=== PATIENT | male | born 1975 | race Two or more races ===

== ENCOUNTER 2018-05-23 13:21 | Emergency (ER) | payer OTHER, MEDICAID ==
[~2018-05-23] VITALS: Ht 175.3 cm; Wt 74.8 kg
[2018-05-23 13:23] VITALS: Ht 175.3 cm; Wt 74.8 kg
[2018-05-23 17:45] VITALS: BP 132/85
[2018-05-23 17:51] LABS: BASOPHIL % 0.3 % (0-2); PLATELET COUNT 237 x10^3mcL (130-400)
[2018-05-23 17:56] LABS: CALCIUM 8.4 mg/dL (8.5-10.1); CARBON DIOXIDE 24.2 mmol/L (21-32); CHLORIDE SERUM 96 mmol/L (98-107); GFR1 > 60 mL/min; GLUCOSE SERUM 113 mg/dL (74-106); POTASSIUM SERUM 3.7 mmol/L (3.5-5.1); SODIUM SERUM 131 mmol/L (136-145)
[2018-05-23 17:59] LABS: ALBUMIN 3.5 g/dL (3.4-5.0); ALKALINE PHOSPHATASE 114 U/L (46-116); ALT/SGPT 23 U/L (16-63); AST/SGOT 14 U/L (15-37); BILIRUBIN TOTAL 0.35 mg/dL (0.20-1.00); TOTAL PROTEIN, SERUM 7.7 g/dL (6.4-8.2)
[2018-05-23 18:05] LABS: CHOLESTEROL 213 mg/dL (<200)
[2018-05-23 18:07] LABS: RED CELL DISTRIBUTION WIDTH 16.4 % (11.5-14.5)
== END 2018-05-23 17:45 | disposition short-term general hospital (02) ==
LOC: ED 13:21
PROVIDERS: Specialist
DX: R11.2 Nausea with vomiting, unspecified (principal); R51 Headache; R40.4 Transient alteration of awareness; R50.9 Fever, unspecified; G89.29 Other chronic pain
CPT/HCPCS: 87804; G0480; J1885; J3010; Q0162

== ENCOUNTER 2019-01-31 12:17 | Inpatient (IN) | payer OTHER, MEDICAID ==
[~2019-01-31] VITALS: Ht 175.3 cm; Wt 74.0 kg
--- NOTE | 2019-01-31 12:18 | NUR ---
PT PLACED ON BUE AND BLE SOFT RESTRAINTS PER MD HAYS VERBAL ORDERS D/T PT BECOMING AGITATED AND COMBATIVE
--- NOTE | 2019-01-31 12:18 | NUR ---
PT ARRIVED ON BUE AND BLE SOFT RESTRAINTS D/T COMBATIVE BEHAVIOR, PER MD HAYS VERBAL ORDERS CONTINUE RESTRAINTS, SEE RESTRAINT FLOW SHEET IN NURSE NOTES
--- NOTE | 2019-01-31 12:18 | NUR ---
MD HAYS AT BEDSIDE PERFORMING MSE
--- NOTE | 2019-01-31 12:18 | NUR ---
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
--- NOTE | 2019-01-31 12:19 | NUR ---
REDNESS TO BILATERAL SCLERA NOTED
--- NOTE | 2019-01-31 12:33 | NUR ---
LAB AT BEDSIDE
[2019-01-31 12:46] LABS: BASOPHIL % 0.2 % (0-2); PLATELET COUNT 270 x10^3mcL (130-400); RED CELL DISTRIBUTION WIDTH 14.7 % (11.5-14.5)
[2019-01-31 12:58] LABS: CALCIUM 8.7 mg/dL (8.5-10.1); CARBON DIOXIDE 21.1 mmol/L (21-32); CHLORIDE SERUM 105 mmol/L (98-107); CREATININE SERUM 1.1 mg/dL (0.7-1.3); GFR1 > 60 mL/min; GLUCOSE SERUM 119 mg/dL (74-106); POTASSIUM SERUM 3.5 mmol/L (3.5-5.1); SODIUM SERUM 141 mmol/L (136-145)
--- NOTE | 2019-01-31 13:00 | NUR ---
DROPLET PRECAUTIONS IN PLACE PER MD HAYS VERBAL ORDER
[2019-01-31 13:10] LABS: ALBUMIN 3.7 g/dL (3.4-5.0); ALKALINE PHOSPHATASE 102 U/L (46-116); ALT/SGPT 22 U/L (16-63); AST/SGOT 20 U/L (15-37); BILIRUBIN DIRECT 0.19 mg/dL (0.0-0.2); BILIRUBIN TOTAL 0.8 mg/dL (0.20-1.00); LIPASE 52 IU/L (73-393); TOTAL PROTEIN, SERUM 6.9 g/dL (6.4-8.2)
--- NOTE | 2019-01-31 13:15 | NUR ---
ADMINSTERED VERSED IVP D/T PT BEING RESTLESS AT BEDSIDE FOR CT.
--- NOTE | 2019-01-31 13:18 | NUR ---
INITIATED ROCEPHIN @200ML/HR. PLEASE SEE EMAR.
--- NOTE | 2019-01-31 13:41 | NUR ---
INITIATED ACYCLOVIR @120ML/HR. PLEASE SEE EMAR.
--- NOTE | 2019-01-31 13:55 | NUR ---
PT HAD A BM ON THE GURNEY. EMT VANIA AND MYSELF CLEAN AND CHANGED PT INTO NEW GOWN.
--- NOTE | 2019-01-31 14:00 | NUR ---
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
--- NOTE | 2019-01-31 14:12 | NUR ---
RT CALLED TO BEDSIDE FOR MODERATE SEDATION, MD HAYS MADE AWARE
--- NOTE | 2019-01-31 14:17 | NUR ---
CONTACTED CT, INFORMED ME APPROX [address] BED AVAILABLE
--- NOTE | 2019-01-31 14:32 | NUR ---
PER DR. HAYS, CONTACT AND DROPLET PRECAUTIONS APPLIED TO PATIENT, STAFF MADE AWARE
--- NOTE | 2019-01-31 14:50 | NUR ---
CRASH CART AT BEDSIDE, MODERATE SEDATION PROTOCOL IN PLACE, PT ON FULL CM, RT AND PERSONAL CARE SERVICE PROVIDER AT BEDSIDE
--- NOTE | 2019-01-31 14:50 | NUR ---
MD HAYS AT BEDSIDE FOR MODERATE SEDATION, SEE MODERATE SEDATION RECORDLACED IN PT CHART, PT UNABLE TO SIGN CONSENT D/T BRIAN, ELLEN RN AND CORNELIUS RN SIGNED CONSENT
--- NOTE | 2019-01-31 15:07 | NUR ---
LEFT HAND 18G IV DISLODGED DURING CT, PT WAS AGITATED, BLEEDING CONTROLLED, ANGIOCATH INTACT
--- NOTE | 2019-01-31 15:40 | NUR ---
BACK FROM CT IN STABLE CONDITION WITH RT AT BEDSIDE, PT ON FULL CM, SINUS TACYCARDIA, EQUAL CHEST RISE AND FALL, SKIN PINK DRY AND WARM
--- NOTE | 2019-01-31 16:00 | NUR ---
PT MOVING ALL EXTREMITIES, EQUAL CHEST RISE AND FALL
--- NOTE | 2019-01-31 16:02 | NUR ---
JESSICA, CONCRETE PUMP OPERATOR HELPER, AT BEDSIDE
--- NOTE | 2019-01-31 16:14 | NUR ---
URINAL IN PLACE
[2019-01-31 16:23] LABS: CHOLESTEROL/HDL RATIO 2.9; MAGNESIUM 1.6 mg/dL (1.8-2.4); PHOSPHOROUS 1.9 mg/dL (2.5-4.9)
--- NOTE | 2019-01-31 16:34 | NUR ---
MARY JANE, CAREGIVER PROVIDED PT MOM NUMBER, OZ MASCORRO, , MARY JANE STS HIS NUMBER HAS CHANGED FROM [facility] AND IS UNAWARE OF HIS CURRENT NUMBER
[2019-01-31] MEDS ORDERED: GABAPENTIN600 M1 PO (16:36)
[2019-01-31] MEDS ORDERED: AMLODIPINE BESYL5 M2 PO (16:38)
[2019-01-31] MEDS ORDERED: PANTOPRAZOLE SO40 M1 PO (16:38)
[2019-01-31] MEDS ORDERED: STRIBILD1 TAB PO (16:38)
[2019-01-31] MEDS ORDERED: PAROXETINE40 M1 PO (16:39)
[2019-01-31] MEDS ORDERED: LOSARTAN POTASS50 M1 PO (16:39)
[2019-01-31] MEDS ORDERED: KROGER NIC21 MG/24 H TOP (16:40)
--- NOTE | 2019-01-31 17:06 | NUR ---
VANCO INFUSING PER MD HAYS ORDER SEE EMAR, VSS, NSR ON CM, RESPS E/U
--- NOTE | 2019-01-31 17:19 | NUR ---
MD HYAS MADE AWARE OF NO URINE COLLECTED AT THIS TIME, PER MD HAYS VERBAL ORDER OKAY TO SEND TO ICU WITHOUT URINE SPECIMEN COLLECTED, RECEIVING RN SIVA MADE AWARE
--- NOTE | 2019-01-31 17:20 | NUR ---
DROPLET PRECAUTIONS D/C PER MD HAYS VERBAL ORDER S/P CT RESULTS
--- NOTE | 2019-01-31 17:30 | NUR ---
MD HAYS MADE AWARE OF PT RECTAL TEMP., PER MD HAYS VERBAL ORDER OKAY TO ADMIT TO ICU, REPORT GIVEN TO SIVA RN, ICU, SHE IS AWARE OF PT VITALS
[2019-01-31 18:13] VITALS: BP 163/93
--- NOTE | 2019-01-31 18:40 | NUR ---
RECIEVED PATIENT FROM ED VIA GURNEY ATTACHED TO FOUNDRY LABORER COREROOM ACCOMPANIED BY NURSE. RECIEVED REPORT FROM PABLO SHIELDS PRIOR TO PATIENT ARRIVING TO UNIT. ALL QUESTIONS AND CONCERNS ADDRESSED. VS UPON ARRIVAL: RECTAL TEMP 103.5, NIBP 163/93 (MAP 106), HR 110, RR 20, 02 SAT 99% RA. COOLING BLANKET IN PLACE AND ICE PACKS APPLIED. PATIENT OPENS EYES TO TACTILE STIMULI BUT UNABLE TO TRACK. PUPILS ARE DILTAED AT 5 MM AND BRISK. PATIENT IS UNABLE TO FOLLOW SIMPLE COMMANDS OR MAKE NEEDS KNOWN AT THIS TIME. PATIENT WILL NOT SPEAK WHEN ASKED A QUESTION. LS ARE CTA BILATERALLY. RESPIRATIONS ARE EQUAL AND SYMMETRICAL. 16 FR MERCADO CATH INSERTED VIA STERILE TECHNIQUE, NO URINE OUTPUT AT THIS TIME. PATIENT FOUND TO HAVE JUST URINATED IN THE BED. WILL MONITOR F/C DRAINAGE CLOSELY. LIMITED ACTIVE ROM NOTED TO BUE AND BLE D/T VELCRO RESTRAINTS IN PLACE. PATIENT IS RESTLESS AND CAN NOT STAY STILL IN BED, KICKING HIS LEGS UP. BED TO LOWEST POSITION, SIDE RAILS UP X3, CALL LIGHT WITHIN REACH. WILL CONTINUE TO MONITOR.
--- NOTE | 2019-01-31 18:47 | NUR ---
DR. AORRA AT BEDSIDE SPEAKING TO PATIENT'S FATHER LUIS REGARDING PATIENT'S HEALTH STATUS AND POC. WILL CONTINUE TO MONITOR.
[2019-01-31 19:27] VITALS: BP 153/93
--- NOTE | 2019-01-31 19:27 | NUR ---
PT OPENS EYES SPONTANEOUSLY, BUT MAKES INCOMPREHENSIBLE SOUNDS, NO VERBAL RESPONSES. ON BILATERAL RESTRAINTS WITH VELCRO TO UPPER EXTREMITIES, RESTRAINTS OFF TO LOWER EXTREMITIES. MALE FAMILY MEMBER WHO IDENTIFIES HIMSELF PT'S FATHER IN ROOM. PT ATTEMPTS TO PULL ON IV LINE AND MERCADO CATH, DANGER TO SELF. REINFORCED NEED NOT TO PULL ON LINES AND TUBES, NO INDICATION OF LEARNING. MG RIDER INFUSING AT THIS TIME TO LEFT AC IV. SALINE LOCK TO RIGHT AC. IV SITES APPEAR FREE FROM ERYTHEMA OR SWELLING. PASSED SOFT STOOL, HYGIENE NEEDS ATTENDED TO. NOTED YELLOW URINE IN MERCADO BAG.
--- NOTE | 2019-01-31 19:52 | NUR ---
URINE SPECIMEN SENT TO LAB
--- NOTE | 2019-01-31 19:54 | NUR ---
RECEIVED LACTIC ACID OF 2.5 FROM LAB. PREMA AND NOTIFIED DR. ARORA.
--- NOTE | 2019-01-31 20:02 | NUR ---
MALE FAMILY MEMBER BROUGHT PT'S HOME MED STRIBILD, SENT TO PHARMACIST FOR VERIFICATION.
[2019-01-31 20:04] LABS: UA SPECIFIC GRAVITY 1.015 (1.005-1.035); microscopic required? YES; urine erythrocyte 3+ (NEGATIVE)
[2019-01-31 20:19] LABS: AMPHETAMINE QUAL UR NONE DETECTED (See below)
--- NOTE | 2019-01-31 20:53 | NUR ---
PASSED LOOSE STOOL. HYGIENE NEEDS ATTENDED TO. GOWN CHANGED. TYLENOL ADMINISTERED PER RECTUM FOR FEVER. COOLING MATTRESS AND COOLING MEASURES CONTINUED.
--- NOTE | 2019-01-31 21:19 | NUR ---
LATE ENTRY: 1926H - PT ON COOLING MATTRESS. OTHER COOLING MEASURES IN PLACE.
--- NOTE | 2019-01-31 21:46 | NUR ---
PASSED SOFT STOOL. HYGIENE NEEDS ATTENDED TO. NOTED SMALL CLOT OF BLOOD TO MERCADO CATH.
--- NOTE | 2019-01-31 21:54 | NUR ---
DR. LEIVA IN PT'S ROOM, PT'S MOTHER IN ROOM
--- NOTE | 2019-01-31 23:32 | NUR ---
AWAITING PRECEDEX FROM PHARMACY
--- NOTE | 2019-01-31 23:45 | NUR ---
PRECEDEX DRIP STARTED AT 0,2MCG/KG/HR. DOSAGE AND IV SET UP VERIFIED WITH LEORA BUSTILLOS.
[2019-02-01] VITALS (9 sets, daily range): BP systolic 90–148; BP diastolic 33–89; Ht 175.3 cm; Wt 74.0 kg
--- NOTE | 2019-02-01 00:18 | NUR ---
PRECEDEX DRIP WAS INCREASED BY LEORA BUSTILLOS TO 0.4 MCG/KR/HR. PT APPEARS SOMEWHAT CALMER. STILL ATTEMPTS TO PULL ON IV LINE AND MERCADO CATH, DANGER TO SELF. ON BILATERAL WRIST RESTRAINTS. MOTHER IN ROOM. DR. ORTIZ AND DR. ARORA CAME IN ROOM. INFORMED DR. ARORA NOTED BLOOD IN PT'S URINE.
--- NOTE | 2019-02-01 00:38 | NUR ---
TEMP 99.8F. TURNED Sckip[employer] TechnologiesTHER TO MONITOR MODE.
--- NOTE | 2019-02-01 00:39 | NUR ---
NEW ORDERS RECEIVED, WAITING FOR PHARMACY TO VERIFY
--- NOTE | 2019-02-01 01:01 | NUR ---
PT ABLE TO STATE HIS NAME WHEN ASKED. STILL UNABLE TO STATE WHERE HE IS OR . CHANGED STATLOCK MERCADO TO PREVENT PT FROM PULLING ON MERCADO CATH. IV TO LEFT AC DIFFICULT TO FLUSH, WAS REMOVED BY NURSE BURKS. NEW IV INSERTED BY NURSE BURKS TO LEFT AC. SALINE LOCK TO RIGHT AC FLUSHED WELL. IV'S INFUSING TO RIGHT AC IV.
--- NOTE | 2019-02-01 02:08 | NUR ---
PRECEDEX DRIP IS AT 0.7 MCG/KG/HR. INFUSING TO RIGHT AC IV. PT IS CALMER, BUT STILL HAS EPISODES OF RESTLESSNESS AND ATTEMPTING TO PULL ON IV LINE AND MERCADO CATH. ON BILATERAL WRIST RESTRAINTS. RESTRAINT SITES FREE FROM ERYTHEMA. HOB KEPT ELEVATED 30 DEG. MERCADO CATH DRAINING LIGHT RED URINE. IV SITES FREE FROM ERYTHEMA OR SWELLING. PT'S MOTHER AT BEDSIDE ON RECLINER CHAIR.
--- NOTE | 2019-02-01 02:29 | NUR ---
EYES CLOSED, BREATHING EVEN AND UNLABORED ON ROOM AIR. SINUS RHYTHM ON TELE. CALL LIGHT WITHIN EASY REACH. PT'S MOTHER AT BEDSIDE ON RECLINER CHAIR
--- NOTE | 2019-02-01 05:22 | NUR ---
LATE ENTRY: 0430H - BLOOD URINE IN MERCADO TUBE. MERCADO CATH WAS REMOVED BY LEORA BUSTILLOS. DR. HESS IN ROOM AWARE. PT ABLE TO VOID URINE AFTER MERCADO CATH REMOVED TOTAL OF 500ML URINE. RESTRAINTS REMOVED PT ABLE TO FOLLOW MOST COMMANDS AND CONTRACT NOT TO PULL ON IV LINES. MOTHER IN ROOM. GOWN AND LINEN CHANGED. IV LINES FREE FROM ERYTHEMA OR SWELLING. IVF INFUSING WELL. PRECEDEX INFUSING AT 0.7MCG/KG/HR.
--- NOTE | 2019-02-01 05:24 | NUR ---
EYES CLOSED, BREATHING EVEN AND UNLABORED. HOB KEPT ELEVATED 30 DEG. CALL LIGHT WITHIN EASY REACH. LYING ON HIS BACK. MOTHER AT BEDSIDE.
[2019-02-01 05:27] LABS: CALCIUM 7.1 mg/dL (8.5-10.1); CARBON DIOXIDE 21.3 mmol/L (21-32); CHLORIDE SERUM 103 mmol/L (98-107); CREATININE SERUM 0.7 mg/dL (0.7-1.3); GFR1 > 60 mL/min; GLUCOSE SERUM 110 mg/dL (74-106); MAGNESIUM 2.2 mg/dL (1.8-2.4); PHOSPHOROUS 3.4 mg/dL (2.5-4.9); POTASSIUM SERUM 3.3 mmol/L (3.5-5.1); SODIUM SERUM 136 mmol/L (136-145)
[2019-02-01 05:33] LABS: BASOPHIL % 0.4 % (0-2); PLATELET COUNT 195 x10^3mcL (130-400)
[2019-02-01 05:34] LABS: RED CELL DISTRIBUTION WIDTH 14.6 % (11.5-14.5)
--- NOTE | 2019-02-01 05:38 | NUR ---
LAB CALLED WBC 12.1. SENT MESSAGE VIA [employer] TO DR. ARORA. ALSO INFORMED K LEVEL IS 3.3
--- NOTE | 2019-02-01 05:52 | NUR ---
CK 1040. PAGED DR. ARORA
--- NOTE | 2019-02-01 05:54 | NUR ---
DR. ARORA CALLED BACK, INFORMED CK 6497, WBC 13.9, K 3.3
--- NOTE | 2019-02-01 05:55 | NUR ---
NEW ORDER TO INCREASE IVF OF NS TO 150ML/HR
--- NOTE | 2019-02-01 06:16 | NUR ---
swallow screening done. pt able to drink water without choking, coughing or swallow delay. administered po prilosec. pt able to swallow well.
--- NOTE | 2019-02-01 06:26 | NUR ---
eyes closed, breathing even and unlabored on room air. obeys commands. calm and cooperative with care. hob kept elevated 30 deg. ivf infusing well. ivf and precedex infusing well to right ac iv site, iv site free from erythema or swelling.
--- NOTE | 2019-02-01 07:05 | NUR ---
RECIEVED REPORT FROM PABLO MUSE TO ASSUME ALL CARES. ALL QUESTIONS AND CONCERNS ADDRESSED. PATIENT IS SEDATED ON PRECEDEX DRIP AT 0.7 MCG/KG/HR. RSS-4. OPENS EYES TO VERBAL STIMULI AND ABLE TO TRACK. RESPIRATIONS ARE EQUAL AND SYMMETRICAL ON ROOM AIR. VSS. IV'S NOTED TO LAC AND RAC IN PLACE WITH NO SIGNS OF INFILTRATION NOTED. NS INFUSING AT 150 ML/HR. PATIENT ABLE TO REPOSTIION SELF AND TURN IN BED INDEPENDENTLY. BED TO LOWEST POSITION, SIDE RAILS UP X3, CALL LIGHT WITHIN REACH. PATIENT IS CURRENTLY IN DROPLET PRECAUTIONS TO R/O MENEGITIS. WILL CONTINUE TO MONITOR.
--- NOTE | 2019-02-01 08:47 | NUR ---
ECHOCARDIOGRAM PENDING-PT UNCOOPERATIVE
--- NOTE | 2019-02-01 08:59 | NUR ---
SCREEN FOR LOW SÁNCHEZ SCALE AT RISK CONTINUE PRESSURE ULCER PREVENTION INTERVENTIONS: -TURN AND REPOSITION PATIENT Q 2H OFFLOAD LEFT AND RIGHT HIPS -ASSESS AND MONITOR SKIN CONDITION DURING POSITION CHANGE -OFFLOAD BILATERAL HEELS BY PLACING PILLOWS UNDER CALVES AT ALL TIMES, UNLESS OTHERWISE CONTRAINDICATED -PRESSURE REDISTRIBUTION SURFACE THERAPY -KEEP SKIN CLEAN AND DRY AT ALL TIMES.
--- NOTE | 2019-02-01 10:13 | NUR ---
SPOKE WITH PATIENT'S NURSE JUAN JOSE REGARDING ORDERED LUMBAR PUNCTURE. PATIENT ON IV SEDATION, MOM AT BEDSIDE FOR CONSENT PROCESS. PHYSICIANS ON ROUNDS AT THIS TIME, JUAN JOSE WILL CHECK TO SEE IF PATIENT WILLING TO CONSENT TO THE LP.
--- NOTE | 2019-02-01 14:39 | NUR ---
DR. ZAVALA MADE AWARE PT REFUSED LUMBAR PUNCTURE AT THIS TIME AND IS BACK IN UNIT. PER DR. ZAVALA WE WILL TRY AGAIN TOMORROW.
--- NOTE | 2019-02-01 14:46 | NUR ---
TRANSPORTED PATIENT TO RADIOLOGY FLUORO ROOM 1 FOR LUMBAR PUNCTURE. INITIALLY PATIENT WAS COOPERATIVE BUT UPON ARRIVAL TO RADIOLOGY, BECAME AGITATED, COMBATIVE, THRASHING ON TABLE, JUMPED BACK INTO BED. DR AMAYA SPOKE WITH PATIENT WHO IS NOW REFUSING THE LP; STATES HE IS HAVING TOO MUCH PAIN IN HIS HEAD AND ADAMANTLY REFUSING. RETURNED TO ICU ROOM 1. PATIENT REFUSED TO WEAR MASK DURING TRANSPORT PROCESS.
--- NOTE | 2019-02-01 14:49 | NUR ---
PATIENT BACK FROM LUMBAR PUNCTURE PROCEDURE. PER PABLO RIVERA PATIENT GOT AGITATED WHEN MOVING FROM BED TO PROCEDURE BED AND PATIENT STATED "A LOT OF PRESSURE IN HIS HEAD". PATIENT REFUSED THE LUMBAR PUNCTURE AND WAS SENT STRAIGHT BACK TO ICU 5. DR. GARCIA AND FAMILY MADE AWARE. WILL CONTINUE TO MONITOR.
--- NOTE | 2019-02-01 14:59 | NUR ---
PATIENT C/O 10/10 HEAD PAIN AND IS REQUESTING MORPHINE. PATIENT PREVIOUSLY GIVEN NORCO PO (SEE EMAR). WILL NOTIFY DR. GARCIA.
--- NOTE | 2019-02-01 15:22 | NUR ---
PT REFUSED PHYSICAL THERAPY AT THIS TIME. PHYSICAL THERAPIST STATED HE WILL TRY AGAIN TOMORROW.
--- NOTE | 2019-02-01 15:40 | NUR ---
PHYSICAL THERAPY NOTES PATIENT REFUSED EVAL AND TREATMENT TODAY SECONDARY TO FATIGUE. UNABLE TO ENCOURAGE. PATIENT EDUCATED WITH BENEFITS FOR TREATMENT TO INCREASE OVERALL FUNCTIONAL MOBILITY. PATIENT REFUSED. WILL ATTEMPT NEXT VISIT. NURSING AWARE
--- NOTE | 2019-02-01 19:11 | NUR ---
REPORT GIVEN TO PABLO PEARL TO ASSUME ALL CARES. ALL QUESTIONS AND CONCERNS ADDRESSED.
--- NOTE | 2019-02-01 19:20 | NUR ---
REC'D REPORT FROM JUAN JOSE SHAH TO ASSUME CARE. PT SEDATED ON PRECEDEX 0.7 MCG/KG/HR, RSS 1. PT A/A/0 X3, SPEECH CLEAR AND APPROPRIATE. PERRLA NOTED. EENT FREE OF DISCHARGE. RESPS E/U ON ROOM AIR. LUNG SOUNDS CTA. CHEST RISE EQUAL AND SYMMETRICAL. BLISTER PACKAGING MACHINE OPERATOR IN PLACE SHOWING NSR. S1 S2 AUSCULTATED. CHEST WALL STABLE. DENIES ANY CP, SYNCOPE, OR DIZZINESS. BP 90/50 MAP 65, HR 85. PULSES PALPABLE X4. CAP REFILL < 3 SECS. NO EDEMA NOTED. IV TO RAC AND LAC INTACT AND PATENT. IVF NS INFUSING @ 150ML/HR. ABD ROUND, SOFT, NONTENDER TO TOUCH. BOWEL SOUNDS ACTIVE. DENIES ANY N/V/D. VOIDS FREELY WITH URINAL. DENIES ANY URINARY SYMPTOMS. SKIN INTACT. ABLE TO MOVE ALL EXT WITHOUT DIFFICULTY. PT ABLE TO REPOSITION SELF INDEPENDENTLY. PT RESTLESS AND AGITATED WHEN APPROACHED. PTS MOTHER AND FATHER AT BEDSIDE. FALL PRECAUTIONS APPLIED AND MAITAINED. CALL LIGHT WITHIN REACH. WILL CONTINUE TO MONITOR.
--- NOTE | 2019-02-01 19:50 | NUR ---
PT PLACED IN HIGH FOWLERS POSITION AND SET UP DINNER TRAY.
--- NOTE | 2019-02-01 20:16 | NUR ---
EMPTIED PTS URINAL, 300ML NOMRA COLORED URINE.
--- NOTE | 2019-02-01 23:00 | NUR ---
PT STATES I HAVE NO APPETITE I DONT WANT TO EAT. PTS TRAY TAKEN FROM ROOM.
--- NOTE | 2019-02-02 02:30 | NUR ---
PTS WIRES TANGLED, O2 SAT NOT READING. ATTEMPTED TO UNTANGLE WIRES. PT UPSET, STS "ITS FINE, LEAVE ME ALONE." MADE AWARE PTS O2 SAT NOT READING AND ALL WIRES ALL TANGLED, PT STS "LEAVE ME ALONE." NO RESP DISTRESS NOTED.
[2019-02-02 03:10] VITALS: BP 103/55
--- NOTE | 2019-02-02 04:30 | NUR ---
ATTEMPTED TO FIX PTS O2 SAT AND WIRES, PT UPSET, STS "LEAVE ME ALONE, ITS FINE. I JUST WANT TO SLEEP."
--- NOTE | 2019-02-02 05:00 | NUR ---
PTS RAC IV SEEN OUT WITH ANGIOCATH INTACT. NO ACTIVE BLEEDING NOTED.
--- NOTE | 2019-02-02 05:06 | NUR ---
EMPTIED PTS URINAL, 500ML NORMA COLORED URINE.
[2019-02-02 05:29] LABS: BASOPHIL % 0.4 % (0-2); PLATELET COUNT 178 x10^3mcL (130-400); RED CELL DISTRIBUTION WIDTH 14.8 % (11.5-14.5)
[2019-02-02 05:41] LABS: CALCIUM 7.3 mg/dL (8.5-10.1); CARBON DIOXIDE 20.2 mmol/L (21-32); CHLORIDE SERUM 106 mmol/L (98-107); CREATININE SERUM 0.7 mg/dL (0.7-1.3); GFR1 > 60 mL/min; GLUCOSE SERUM 92 mg/dL (74-106); MAGNESIUM 2.1 mg/dL (1.8-2.4); PHOSPHOROUS 2.9 mg/dL (2.5-4.9); SODIUM SERUM 139 mmol/L (136-145)
--- NOTE | 2019-02-02 05:57 | NUR ---
PTS BED WET, GOWN OFF. OFFERED TO CHANGE BED LINENS, GOWN, AND FIX WIRES. PT REFUSED. PT STS "LEAVE ME ALONE, I JUST WANT TO SLEEP."
--- NOTE | 2019-02-02 07:21 | NUR ---
REPORT GIVEN TO JAXNO SHAH TO ASSUME CARE
--- NOTE | 2019-02-02 07:25 | NUR ---
RECEIVED PT'S REPORT FROM LEAVING NURSE. PT REST ON BED, EASILY AROUSED BY VERBAL STIMULI WITH VERBAL COMMUNICATION. PT IS ON DROPLET ISOLATION. PT IS ON POSITION. HE DOESN'T WANT TO TURN TO HIS BACK. MONITOR WIRES AND LINES ARE TANGLED. PT IS GETTING IRRITATED DURING ASSESSMENT. PT IS OFF RESTRAINTS. PT BREATHING ON RA, EVEN, UNLABORED. HR SB AT 50S. O2 SAT UNABLE TO FORENSICS ANALYST 2/2 PT REFUSED TO KEEPING PULSEOX ON. SEDATION PRECEDEX INFUSING AT 0.7MCG/KG/HR.
[2019-02-02 08:03] VITALS: BP 103/59
--- NOTE | 2019-02-02 08:48 | NUR ---
PT'S HR AROUND 50S, BP AROUND 103/59, TITRATE PRECEDEX FROM 0.7 TO 0.4 MCG/KG/HR. PT IS EASILY AROUSED BY VERBAL STIMULI.
--- NOTE | 2019-02-02 09:56 | NUR ---
DR VENEGAS AND RESIDENTS ROUNDING AT THIS TIME. POC DISCUSSED.
--- NOTE | 2019-02-02 10:12 | NUR ---
PT'S MOM AT BEDSIDE. PRECEDEX IS OFF, ATIVAN 1MG IVP GIVEN PER PRN. PT IS UNPATIENT FOR ASSESSMENT. PT REFUSED FOR PHYSICAL THERAPIST.
--- NOTE | 2019-02-02 10:24 | NUR ---
PATIENT REFUSED ECHOCARDIOGRAM-STATES HE WANTS TO SLEEP
--- NOTE | 2019-02-02 11:09 | NUR ---
Initial Nutrition Assessment: IC05 MANDY MASCORRO HR Dx: ALOC, Sepsis PMHx: HIV, Tobacco abuse disorder, HTN, Peripheral Neuropathy, Depression and GERD PSHx: Back surgery Labs: BUN 20H, CA 7.3L, HGB 12.0L Meds: Cozaar, lactinex, rocephin, vancomycin, zofran Diet: Regular PO Intake: (02/01) 0% all meals Ht: 175.26 cm (69") Wt: 74 kg (163#) BMI: 24.1 kg/m2 Bed scale: 74 kg IBW: 160# (73 kg) %IBW: 101 UBW: 74 kg Age: 43/M Food Allergies: NKFA Skin: intact Clay: 14 Edema: none GI: Last BM: 01/30 Per H&P, Pt is a 43-year-old male with past medical history of HIV, Tobacco abuse disorder, HTN, Peripheral Neuropathy, Depression and GERD who presents in the emergency department after being found altered around 12 PM today by partner followed by EMS. RDN Visit (02/02): Patient was sleeping; pt's mother was at bedside. She said that pt has not eaten anything since yesterday. Asked patient's meal preferences to the mother. She said that patient might eat hamburger, orange juice and apple sauce. Patient mother said that he might drink Ensure and he likes chocolate flavor. Problem with: N/V/D/C: none at this time per mother Problems with: Chewing/Swallowing: none per mother Current appetite: poor Recent wt change: none %wt change: n/a Vitamin/Supplement use: none Special diet at home: regular Physical activity: unable to access Nutrition education given: not possible at this time as patient was sleeping. Food-drug interactions: lactinex- high fiber w/4999-6191 ml fluids Education given: no Estimated Nutritional Needs Based on current body weight 74 kg Energy: 1768-1482 kcal/d (25-30 kcal/kg) Protein: 89-103 g/d (1.2-1.4 g/kg) - preserve LBM, sepsis Fluid: 2947-4737 ml/d (1 ml/kcal) or per doctor Nutrition Diagnosis 1. Inadequate oral intake related to poor appetite as evidenced by documented PO 0% Intervention 1. Recommend Ensure Enlive BID along with regular diet. Discussed recommendations with Dr. Carvalho Monitor/Evaluate Goal: PO intake at least 75% of estimated needs Monitor: PO intake, Labs, GI function F/U in 2-3 days as high risk 02/04-
--- NOTE | 2019-02-02 11:09 | NUR ---
1. Recommend Ensure Enlive BID along with regular diet. Discussed recommendations with Dr. Carvalho
--- NOTE | 2019-02-02 12:14 | NUR ---
PHYSICAL THERAPY NOTE ATTEMPTED FOR PHYSICAL THERAPY EVAL, PATIENT REFUSED AT THIS TIME; STATING HE NEEDS TO CATCH HIS SLEEP. ALSO STATED THAT " I DO NOT NEED PHYSICAL THERAPY"
--- NOTE | 2019-02-02 12:48 | NUR ---
PT IS GOING TO TRANSFER TO [facility] [[email or web address] UNIT ROOM 212 B AFTER LUMBAR PUNCTURE. PT'S REPORT GIVEN TO RECEIVING NURSE ZEYAD. MADE PT'S MOM AWARE. PT IS OFF SEDATION PRECEDEX.
--- NOTE | 2019-02-02 13:01 | NUR ---
PT IS TAKEN FOR LUMBAR PUNCTURE BY NURSE ANASTASIA WITH SALINE LOCK. ATIVAN 1MG IVP PRN GIVEN TO CALM PT. SCHEDULED ROCEPHINE NOT ABLE TO GIVEN AT THIS TIME.
--- NOTE | 2019-02-02 14:09 | NUR ---
ECHO PENDING-HAVING PROCEDURE
--- NOTE | 2019-02-02 14:30 | NUR ---
RECEIVED PATIENT FROM ICU VIA RADIOLOGY AFTER LUMBAR PUCTURE DONE. PATIENT ALERT/ORIENTED TO PERSON/PLACE AND TIME. CLEAR SPEECH. DENIED PAIN NOW. V/S = 99.0-80-18-108/58; O3 SAT 97% ON RA. VOID FREELY 250 CC OF YELLOWISH URINE. IV TO RAC LEAKING. PUT PATIENT ON FLAT SUPINE POSITION FOR 4-6 HRS, BUT PATIENT NOT CO-OP. PATIENT ATE SANDWICH AND DRANK WATER QUICKLY. NO N/V. MOTHER AT BED SIDE. DROPLET ISOLATION IN PLACE. CALL LIGHT IN REACH.
[2019-02-02 14:46] VITALS: BP 108/58
--- NOTE | 2019-02-02 16:25 | NUR ---
IV INSERTED BY 3 RN. IV ISERTED TO R WRIST W/ 22G NEEDLE.
--- NOTE | 2019-02-02 16:50 | NUR ---
C/O ANXIETY, ATIVAN 1MG IVP GIVEN.
[2019-02-02 16:51] LABS: COLOR CSF COLORLESS
[2019-02-02 16:52] LABS: APPEARANCE CSF CLEAR; LYMPHOCYTE CSF 83 % (40-80); MONOCYTE CSF 13 %; RBC CSF 40 /cumm (0); WBC CSF 230 /cumm (0-5)
[2019-02-02 16:57] VITALS: BP 113/61
--- NOTE | 2019-02-02 17:35 | NUR ---
C/O NAUSEA AND VOMITING X1, 200CC OF UNDIGESTED FOOD SEEN. ZOFRAN 4MG IVP GIVEN.
--- NOTE | 2019-02-02 17:57 | NUR ---
C/O BACK PAIN AND HEADACHE ON 02/24; NORCO GIVEN PER ORDER. ASKED PATIENT LYING BED W/ FLAT SUPINE POSITION. BUT PATIENT WAS NOT TO CO-OP TO CARES.
--- NOTE | 2019-02-02 18:39 | NUR ---
C/O HEADACHE. STATED NORCO WAS NOT EFFECTIVE. TORADOL 15MG IVP GIVEN.
--- NOTE | 2019-02-02 19:35 | NUR ---
RECIEVED PT RESTING IN BED WITH NO ACUTE DISTRESS NOTED. ASSESSMENT PERFORMED AT THIS TIME, PT IS A/OX4 COMPLAINS OF MOREJON AT THIS TIME, PT DENIES DIZZINESS, LUMBAR PUNCTURE TO LOWER BACK COVERED WITH BANDAID CDI NO DRAINAGE, PT DENIES PAIN OTHERWISE, PT DENIES CHEST PAIN OR SOB, IV 22G TO THE RIGHT WRIST PATENT AND INTACT WITH NO SIGNS OF INFILLTRATION, ALL NEEDS ATTENDED TO WILL CONTINUE TO MONITOR
[2019-02-02 21:08] VITALS: BP 116/55
--- NOTE | 2019-02-02 22:35 | NUR ---
PT COMPLAINING OF MOREJON AND RESTLESSNESS, ADMINISTERED ATIVAN PRN AND TYLENOL PRN PER ORDER WILL CONTINUE TO MONITOR
--- NOTE | 2019-02-03 00:04 | NUR ---
PT COMPLAINING OF PERSISTANT MOREJON, ADMINISTERED NORCO PRN PER ORDER, WILL CONTINUE TO MONITOR
--- NOTE | 2019-02-03 00:12 | NUR ---
PT COMPLAINING OF RESTLESSNESS, ADMINISTERED ATIVAN PRN PER ORDER WILL CONTINUE TO MONITOR
--- NOTE | 2019-02-03 03:27 | NUR ---
PT RESTING IN BED WITH PARENT AT BEDSIDE, NO ACUTE DISTRESS AT THIS TIME, NO SOB AT THIS TIME, RESPIRATIONS EVEN AND UNLABORED SAFETY PECAUTIONS IN PLACE, WILL CONTINUE TO MONITOR
--- NOTE | 2019-02-03 05:24 | NUR ---
PT RESTED THROUGH THE NIGHT, PT COMPLAINED OF MOREJON PAIN AND ANXIETY THROUGH BEGINNING OF SHIFT BUT THEY WERE RESOLVED WITH PRN ATIVAN AND PRN NORCO, PT DENIED ANY SOB, PT WAS ABLE TO VOID FREELY, MOTHER REMAINED AT BEDSIDE THROUGH SHIFT, SAFETY PRECAUTIONS WERE MAINTAINED THROUGH EVENING WILL CONTINUE TO MONITOR AND ENDORSE CARE
[2019-02-03 05:49] VITALS: BP 103/52
--- NOTE | 2019-02-03 06:00 | NUR ---
PT IV PULLED OUT, RESTARTED IV IN THE LEFT FOREARM, 24 G, FLUSHES WELL
--- NOTE | 2019-02-03 06:03 | NUR ---
PT COMPLAINING OF ANXIETY AND RESTLESSNESS, BP 103/52 DR HESS ONFORMED SHE SAID WE COULD GIVE ATIVAN BUT SHE WOULD ADJUST THE DOSE, DOSE WAS ADJUSTED TO 0.5 MG AND SHE SAID THAT WOULD BE OK TO GIVE, ADMINISTERED PER ORDER, WILL MONITOR
[2019-02-03 06:30] LABS: BASOPHIL % 0.2 % (0-2); PLATELET COUNT 225 x10^3mcL (130-400)
[2019-02-03 06:57] LABS: CALCIUM 7.3 mg/dL (8.5-10.1); CARBON DIOXIDE 23.7 mmol/L (21-32); CHLORIDE SERUM 108 mmol/L (98-107); CREATININE SERUM 0.7 mg/dL (0.7-1.3); GFR1 > 60 mL/min; GLUCOSE SERUM 91 mg/dL (74-106); PHOSPHOROUS 3.3 mg/dL (2.5-4.9); POTASSIUM SERUM 3.5 mmol/L (3.5-5.1); SODIUM SERUM 142 mmol/L (136-145)
--- NOTE | 2019-02-03 07:00 | NUR ---
RECEIVED BEDSIDE REPORT FROM PATENT LAWYER NURSE AT THIS TIME. PATIENT RESTING IN BED. NO APPARENT DISTRESS OR DISCOMFORT NOTED. BREATHING EVEN AND UNLABORED. NO RESPIRATORY DISTRESS OR DISCOMFORT NOTED. PATIENT DENIES CHEST PAIN/PRESSURE. PATIENT C/O HEADACHE AT THIS TIME. WILL MEDICATE ORDERED BY EMAR.IV PATENT AND INTACT. ALL QUESTIONS AND CONCERNS ADDRESSED. ALL NEEDS ATTENDED TO. WILL CONTINUE TO MONITOR
[2019-02-03 08:20] VITALS: BP 107/70
--- NOTE | 2019-02-03 08:30 | NUR ---
IV PULLED OUT WITH CATH INTACT. NEW IV INSERTED AT THIS TIME. ALL NEEDS ATTENDED TO. WILL CONTINUE TO MONITOR
--- NOTE | 2019-02-03 10:01 | NUR ---
ALL MORNING MEDICATIONS ADMINISTERED AT THIS TIME. PATIENT TOLERATED MEDICATION WELL. NO APPARENT ADVERSE EFFECTS NOTED. ALL NEEDS ATTENDED TO. WILL CONTINUE TO MONITOR
--- NOTE | 2019-02-03 11:37 | NUR ---
PATIENT C/O HEADACHE AT THIS TIME. PATIENT MEDICATED WITH TYLENOL. PATIENT TOLERATED MEDICATION WELL. NO APPARENT ADVERSE EFFECTS NOTED. ALL NEEDS ATTENDED TO. WILL CONTINUE TO MONITOR
--- NOTE | 2019-02-03 12:47 | NUR ---
SPOKE TO DR MCKEON AT THIS TIME REGARDING PATIENT ATIVAN ORDER. PER DR MCKEON, HE WILL CHANGE DOSE FROM 0.25 TO 0.5. AWAITING ORDERS AT THIS TIME. WILL CONTINUE TO MONITOR
--- NOTE | 2019-02-03 13:30 | NUR ---
PATIENT C/O A HEADACHE AT THIS TIME. PATIENT MEDICATED WITH NORCO PO PRN. PATIENT TOLERATED MEDICATION WELL. NO APPARENT ADVERSE EFFECTS NOTED. ALL NEEDS ATTENDED TO. WILL CONTINUE TO MONITOR
--- NOTE | 2019-02-03 14:02 | NUR ---
PATIENT C/O ANXIETY AT THIS TIME. PATIENT MEDICATED WITH ATIVAN 0.5MG AT THIS TIME. PATIENT TOLERATED MEDICATION WELL. NO APPARENT ADVERSE EFFECTS NOTED. ALL NEEDS ATTENDED TO. WILL CONTINUE TO MONITOR
--- NOTE | 2019-02-03 15:16 | NUR ---
REPORTED TO DR GARCIA THAT DR ORTIZ WOULD LIKE TO SPEAK WITH A RESIDENT REGARDING PATIENT. PROVIDED DR GARCIA, DR MCINTOSH NUMBER. PER DR GARCIA, HE WILL CALL DR GARCIA WITH UPDATES. ALL NEEDS ATTENDED TO. WILL CONTINUE TO MONITOR
--- NOTE | 2019-02-03 15:33 | NUR ---
PATIENT C/O HEADACHE AT THIS TIME. PATIENT MEDICATED WITH TORADOL IVP PRN AT THIS TIME. PATIENT TOLERATED MEDICATION WELL. NO APPARENT ADVERSE EFFECTS NOTED. ALL NEEDS ATTENDED TO. WILL CONTINUE TO MONITOR
[2019-02-03 16:18] VITALS: BP 115/74
--- NOTE | 2019-02-03 18:17 | NUR ---
PATIENT C/O ANXIETY AT THIS TIME. PATIENT MEDICATED WITH ATIVAN IVP PRN. PATIENT TOLERATED MEDICATION WELL. NO APPARENT ADVERSE EFFECTS NOTED. ALL NEEDS ATTENDED TO. WILL CONTINUE TO MONITOR
--- NOTE | 2019-02-03 18:54 | NUR ---
PATIENT RESTING COMFORTABLY IN BED AT THIS TIME. NO APPARENT DISTRESS OR DISCOMFORT NOTED. IV PATENT AND INTACT. ALL QUESTIONS AND CONCERNS ADDRESSED. ALL NEEDS ATTENDED TO. SAFETY PRECAUTIONS MAINTAINED. WILL ENDORSE ALL CARE TO FILLETER NURSE
--- NOTE | 2019-02-03 19:40 | NUR ---
RECEIVED REPORT FROM DAY SHIFT RN. PT RESTING IN BED. AA&O X4. BREATHING EVEN AND UNLABORED ON ROOM AIR. NO DISTRESS NOTED. IV TO RFA, INTACT. SAFETY MEASURES IN PLACE. BED IN LOWEST POSITION. SIDE RAILS UP X2. INSTRUCTED PT TO USE THE CALL LIGHT FOR ASSISTANCE. CALL LIGHT WITHIN REACH. FAMILY AT BEDSIDE.
--- NOTE | 2019-02-03 20:40 | NUR ---
ATIVAN FOR ANXIETY GIVEN.
[2019-02-03 20:57] VITALS: BP 116/67
--- NOTE | 2019-02-04 00:44 | NUR ---
ATIVAN FOR ANXIETY GIVEN.
--- NOTE | 2019-02-04 01:35 | NUR ---
PT C/O HEADACHE 12/25. NORCO GIVEN.
--- NOTE | 2019-02-04 04:47 | NUR ---
ATIVAN GIVEN FOR ANXIETY.
[2019-02-04 06:03] VITALS: BP 111/68
--- NOTE | 2019-02-04 06:44 | NUR ---
PT RESTING WITH EYES CLOSED AT THIS TIME. BREATHING EVEN AND UNLABORED ON ROOM AIR. NO FACIAL GRIMACING. NO DISTRESS NOTED. SAFETY MEASURES MAINTAINED. ALL NEEDS ATTENDED TO. CALL LIGHT WITHIN REACH. WILL ENDORSE CONTINUITY OF CARE TO ONCOMING RN.
--- NOTE | 2019-02-04 08:02 | NUR ---
RECEIVED PATIENT FROM PABLO UNDERWOOD. PATIENT SLEEPING AT THIS TIME, NO SIGNS OF PAIN OR DISCOMFORT. DR MCKEON IN TO SPEAK WITH PATIENT BRIEFLY. MOTHER AT BEDSIDE. WILL AWAIT CARE TEAM TO MAKE ROUNDS AND UPDATE PATIENT. CALL LIGHT IN REACH, PATIENT ACROSS FROM NURSES STATION.
[2019-02-04 08:03] VITALS: BP 121/71
--- NOTE | 2019-02-04 10:53 | NUR ---
DR VENEGAS AND DR Madrigal IN TO SPEAK WITH PATIENT. STATES STILL AWAITING CULTURE & SENSITIVITY REPORTS, WELL DR ORTIZ PLAN. MOTHER AT BEDSIDE. ALL QUESTIONS ADDRESSED AND PATIENT AND MOTHER VERBALIZE UNDERSTANDING. PRN N/V AND BENADRYL ORDERED BY DR Madrigal PER PATIENT REQUEST OF NAUSEA AND INSOMNIA. WILL CONTINUE TO MONITOR. CALL LIGHT IN REACH.
[2019-02-04 11:55] VITALS: BP 138/93
--- NOTE | 2019-02-04 11:55 | NUR ---
Follow-up Nutrition Assessment: 212/A MANDY MASCORRO HR Dx: ALOC, Sepsis PMHx: HIV, Tobacco abuse disorder, HTN, Peripheral Neuropathy, Depression and GERD Labs: (02/04): CA 7.3L, HGB 12.7L Meds: Cozaar, lactinex, rocephin, vancomycin, zofran Diet: Regular PO Intake: (02/03) dinner 80%, lunch, breakfast 0% Weights: (02/01) 73.6 kg, (02/02) 74 kg, (02/04) 72.1 kg Skin: ecchymosis noted to BUE, intact Clay: 20 I/Os: (02/03) 4688/3500 (1188) Edema: none GI: Last BM: 02/02 RDN Visit (02/04): Patient continues to have poor PO. Per patient's mother, patient is having N/V and he vomited twice last night. She requested that patient wants to eat grilled cheese. Preferences were taken into consideration and diet tech was informed. Estimated Nutritional Needs Based on current body weight 74 kg Energy: 9657-4246 kcal/d (25-30 kcal/kg) Protein: 89-103 g/d (1.2-1.4 g/kg) - preserve LBM, sepsis Fluid: 8890-9226 ml/d (1 ml/kcal) or per doctor Nutrition Diagnosis 1. Inadequate oral intake related to poor appetite as evidenced by documented PO 0%. (ongoing) Intervention 1. Recommend continuing regular diet with Ensure Enlive TID. Monitor/Evaluate Goal: Have pt meet at least 75% of estimated needs Monitor: PO intake, Labs, GI function F/U in 2-3 days as high risk 02/06-
--- NOTE | 2019-02-04 11:55 | NUR ---
Recommend continuing regular diet with Ensure Enlive TID.
--- NOTE | 2019-02-04 12:05 | NUR ---
PATIENT REFUSED ECHO AT THIS TIME-STATES HE IS HUNGRY AND WANTS TO EAT LUNCH FIRST
[2019-02-04 12:21] LABS: CALCIUM 7.9 mg/dL (8.5-10.1); CHLORIDE SERUM 107 mmol/L (98-107); CREATININE SERUM 0.8 mg/dL (0.7-1.3); GFR1 > 60 mL/min; GLUCOSE SERUM 96 mg/dL (74-106); PHOSPHOROUS 3.2 mg/dL (2.5-4.9); POTASSIUM SERUM 3.6 mmol/L (3.5-5.1); SODIUM SERUM 143 mmol/L (136-145)
[2019-02-04 12:41] LABS: BASOPHIL % 0.3 % (0-2); PLATELET COUNT 254 x10^3mcL (130-400)
--- NOTE | 2019-02-04 13:43 | NUR ---
ECHO PENDING-NURSE WITH PATIENT
--- NOTE | 2019-02-04 14:38 | NUR ---
ECHOCARDIOGRAM PENDING-NURSE WITH PATIENT
--- NOTE | 2019-02-04 14:54 | NUR ---
PATIENT IN BED AT THIS TIME, CALM AND COOPERATIVE. COUSINS AND MOTHER AT BEDSIDE. REQUESTED PRN ATIVAN FOR ANXIETY. NEW IV RESTARTED TO L FOREARM. CALL LIGHT IN REACH AT THIS TIME.
[2019-02-04 17:17] VITALS: BP 117/78
--- NOTE | 2019-02-04 18:11 | NUR ---
PATIENT SEATED AT BEDSIDE, COMPLAINTS OF MILD MOREJON. FAMILY AT BEDSIDE. ECHOCARDIOGRAM SCHEDULED FOR TOMORROW AM, PATIENT AND FAMILY MADE AWARE. NO OTHER COMPLAINTS AT THIS TIME, WILL ENDORSE TO ONCOMING NURSE. CALL LIGHT IN REACH.
--- NOTE | 2019-02-04 20:14 | NUR ---
RECEIVED PT IN BED COMFORTABLY RESTING WITH FAMILY AT BEDSIDE.LUNG SOUND CTA. BREATHING EVEN AND UNLABORED. PT C/O MOREJON 07/25 BUT ITS TOLERABLE. IV SITE TO LFA, PATENT AND INTACT.SCATTERED ECCHYMOSIS TO BUE. BED IN LOWEST POSITION,CALL LIGHT WITHIN REACH. WILL CONTINUE TO MONITOR.
--- NOTE | 2019-02-04 20:40 | NUR ---
PT C/O INSOMIA. MEDICATED AMBIEN 5MG PO ORDERED. WILL CONTINUE TO MONITOR.
--- NOTE | 2019-02-04 21:45 | NUR ---
PT C/O ANXIETY. MEDIACTED ATIVAN 0.5MG IVP ORDERED. WILL CONTINUE TO MONITOR.
--- NOTE | 2019-02-05 05:12 | NUR ---
PT REMAINED ASLEEP. NO DISTRESS NOTED. DENIES ANY PAIN AT THIS TIME. IVF INFUSING WELL. BED IN LOWEST POSITION,CALL LIGHT WITHIN REACH. WILL CONTINUE TO MONITOR.
--- NOTE | 2019-02-05 05:55 | NUR ---
PT C/O ANXIETY.EDICATED ATIVAN 0.5MG IVP ORDERED. WILL CONTINUE TO MONITOR.
[2019-02-05 06:12] VITALS: BP 122/76
[2019-02-05 06:42] LABS: BASOPHIL % 0.5 % (0-2); PLATELET COUNT 281 x10^3mcL (130-400)
[2019-02-05 06:46] LABS: CARBON DIOXIDE 32.1 mmol/L (21-32); CHLORIDE SERUM 109 mmol/L (98-107); CREATININE SERUM 0.8 mg/dL (0.7-1.3); GFR1 > 60 mL/min; GLUCOSE SERUM 93 mg/dL (74-106); MAGNESIUM 2.2 mg/dL (1.8-2.4); POTASSIUM SERUM 3.8 mmol/L (3.5-5.1); SODIUM SERUM 146 mmol/L (136-145)
[2019-02-05 06:53] LABS: RED CELL DISTRIBUTION WIDTH 14.9 % (11.5-14.5)
--- NOTE | 2019-02-05 07:26 | NUR ---
CARE ENDORSED OT DAY NURSE RHETT.
--- NOTE | 2019-02-05 08:00 | NUR ---
ALERT AND ORIENTED. BREATHING FREELY ON RA. MOTHER STEPPED OUT TO GET FRESHENED UP AND WILL BE BACK. NS INFUSING 150 CC HOUR LFA. DENIES ANY NAUSEA OR PAIN AT THIS TIME. INTERMITTENT H/A. NO TELE. VSS. INDEPENDENT W ADL'S. BRP, DROPLET ISOLATION FOR MENINGITIS. CALL LIGHT WITHIN REACH. DOZING OFF AND ON. RESPONDS TO VEBAL.
[2019-02-05 08:17] VITALS: BP 156/97
--- NOTE | 2019-02-05 09:21 | NUR ---
ECHOCARDIOGRAM PENDING-NURSE WITH PATIENT
--- NOTE | 2019-02-05 14:04 | NUR ---
PT GETNG INTO SHOWER.
[2019-02-05 16:59] VITALS: BP 140/73
--- NOTE | 2019-02-05 18:20 | NUR ---
FUNGAL CULTURE AND INK CSF THAT WAS ORDERED SINCE 02/03 WAS NOTED THAT IT WASN'T PROCESS YET BY LAB. CALLED AND SPOKE INITIALLY TO COY(STAFF FROM LAB) AND SAYS, SHE WILL CALL ME BACK AND CHECK WHAT IS GOING ON. HAVE NOT RECEIVED A CALL FROM HER FOR MORE THAN AN HOUR. CALLED AND SPOKE TO ADA (STAFF FROM [facility]) TO FOLLOW UP WITH THE TEST MENTIONED ABOVE AND MADE HIM AWARE OF WHAT WAS GOING ON. ADA FROM LAB SAID, HE WILL CHECK THE STATUS OF THE SAID TEST. RHETT RN ASSIGNED TO THIS PT MADE AWARE OF ABOVE. CALLED TO THE RESIDENT CALL PHONE AND SPOKE TO (SENIOR RESIDENT) AND MADE HER AWARE TO INFORM OF ABOVE AND SHE SAYS, SHE WILL RELAY IT TO HIM. WILL ENDORSE TO NT ENGINEERING TECHNICAL WRITER.
--- NOTE | 2019-02-05 19:30 | NUR ---
PT RECEIVED FROM AM NURSE. PT A/O X4, ABLE TO MAKE NEEDS KNOWN. MED-SURG, DENIES ANY CP/PRESSURE. PULSES PALPABLE, NO EDEMA PRESENT. BREATHING IS EVEN AND UNLABORED, NO RESP DISTRESS NOTED. ABD SOFT AND NONDISTENDED, DENIES N/V. VOIDS FREELY, BRP. AMBULATORY WITH STEADY GAIT. SCATTERED ECCHYMOSIS NOTED TO CLAUDINE NGUYEN. PT DENIES HAVING ANY PAIN AT THIS TIME. IV TO LFA, PATENT AND INTACT, SITE WNL. NO ACUTE DISTRESS NOTED. DROPLET PRECAUTIONS IN PLACE FOR POSSIBLE MENINGITIS. MOTHER AT BEDSIDE. CALL LIGHT WITHIN REACH. WILL CONT TO MONITOR.
--- NOTE | 2019-02-05 19:32 | NUR ---
RECEIVED T.CCristel FROM GENOVEVA IN LAB. OUTSIDE LAB DOES HAVE PTS CSF IN THEIR FREEZER BUT NOT THE NEEDED 50 CC FOR YANICK INK TEST. CAN ALSO USE 1 CC TISSUE, HAIRS, SKIN SCRAPPINGS, NAIL CLIPPINGS(?). FUNGAL CULTURE-THERE ARE MULTIPLE CHOICES. CAN PUT UNDER COMMENT TEST IS FOR BACTERIAL MENENGITIS OR FUNGAL INFECTION.SPOKE WITH DR. ELLIS. SHE IS AWARE OF SITUATION AND MORE WILL BE DONE IN AM.
[2019-02-05 20:38] VITALS: BP 122/82
--- NOTE | 2019-02-05 20:45 | NUR ---
PT C/O OF ANXIETY, INFORMED PT THAT ATIVAN IS NOT DUE YET. PT STATES HE FEELS VERY ANXIOUS AND IS UNABLE TO WAIT. DR GONZÁLES CALLED AND MADE AWARE. ONE TIME ATIVAN IVP GIVEN ORDERED. NO ACUTE DISTRESS NOTED. WILL CONT TO MONITOR.
--- NOTE | 2019-02-05 21:57 | NUR ---
PT C/O INSOMNIA, PRN AMBIEN GIVEN ORDERED. NO ACUTE DISTRESS NOTED. WILL CONT TO MONITOR.
--- NOTE | 2019-02-05 23:17 | NUR ---
PT C/O ANXIETY AND REQUESTING MED. PRN ATIVAN IVP GIVEN ORDERED. PT ALSO REPORTS HAVING EMESIS X1, OFFERED PT ANTINAUSEA MED, PT REFUSED, STATES "I'M NOT NAUSEOUS ANYMORE." NO ACUTE DISTRESS NOTED. WILL CONT TO MONITOR.
--- NOTE | 2019-02-05 23:55 | NUR ---
RECEIVED CALL FROM DR ORTIZ. UPDATED DR ON PT'S STATUS. NO NEW ORDERS AT THIS TIME.
--- NOTE | 2019-02-06 02:49 | NUR ---
PT CONT TO C/O DIFFICULTY SLEEPING AND REQUESTING SLEEP AID. DR GONZÁLES CALL AND MADE AWARE. ONE TIME ORDER OF RESTORIL GIVEN PER EMAR. NO ACUTE DISTRESS NOTED. IVF INFUSING WELL, SITE WNL. NO ACUTE DISTRESS NOTED. WILL CONT TO MONITOR.
--- NOTE | 2019-02-06 03:30 | NUR ---
PT C/O ANXIETY, PRN ATIVAN IVP GIVEN ORDERED. NO ACUTE DISTRESS NOTED. WILL CONT TO MONITOR.
[2019-02-06 05:39] VITALS: BP 129/85
--- NOTE | 2019-02-06 06:23 | NUR ---
PT SLEPT AT INTERVALS THROUGHOUT THE EVENING. BREATHING IS EVEN AND UNLABORED, NO RESP DISTRESS NOTED. PT DENIES HAVING ANY PAIN AT THIS TIME. NO ACUTE CHANGES ENCOUNTERED DURING SHIFT. ALL NEEDS MET AND ANTICIPATED. PT COMPLIANT WITH NURSING CARE. IV TO LFA, PATENT AND INTACT, SITE WNL. MOTHER AT BEDSIDE. CALL LIGHT WITHIN REACH. WILL ENDORSE CARE TO AM NURSE.
[2019-02-06 06:24] LABS: BASOPHIL % 1.3 % (0-2); PLATELET COUNT 308 x10^3mcL (130-400)
[2019-02-06 07:03] LABS: RED CELL DISTRIBUTION WIDTH 15.3 % (11.5-14.5)
[2019-02-06 07:11] LABS: CARBON DIOXIDE 27.9 mmol/L (21-32); CHLORIDE SERUM 108 mmol/L (98-107); CREATININE SERUM 0.7 mg/dL (0.7-1.3); GFR1 > 60 mL/min; GLUCOSE SERUM 95 mg/dL (74-106); MAGNESIUM 2.2 mg/dL (1.8-2.4); PHOSPHOROUS 3.6 mg/dL (2.5-4.9); POTASSIUM SERUM 3.7 mmol/L (3.5-5.1); SODIUM SERUM 143 mmol/L (136-145)
--- NOTE | 2019-02-06 07:28 | NUR ---
PT IN NO ACUTE DISTRESS. CONTINUITY OF CARE ENDORSED TO AM NURSE. ALL QUESTIONS AND CONCERNS ADDRESSED.
--- NOTE | 2019-02-06 07:30 | NUR ---
PT IS AAOX4. PT STATES HE HAS CHRONIC H/A SINCE ADMISSION BUT NONE AT THIS TIME. RESP EVEN AND UNLABORED. LUNG SOUNDS CTA. ON R/A. NORMAL S1S2 NOTED. ABDOMEN SOFT, NONTENDER, NONDISTENDED. BOWEL SOUNDS ACTIVE. PT DENIES N/V/D AND CONSTIPATION. SKIN CDI, NO EDEMA NOTED. PERIPHERAL PULSES PALPABLE. IVF RUNNING TO [facility], SITE WNL. MOTHER AT BEDSIDE. CALL LIGHT WITHIN REACH. BED IN LOWEST POSTION. DROPLET PRECAUTIONS FOLLOWED.
--- NOTE | 2019-02-06 08:00 | NUR ---
DR. ZAVALA MADE AWARE THAT OUTSIDE LAB CALLED, GENOVEVA FLOOR SCRUBBER STATED THAT THE 50CC FLUID (SPINAL) RECEIVED WAS NO ENOUGH FOR A SPECIMEN. ALSO, THE FUNGAL CX HAS MULTIPLE CHOICE, PLS DEFINE IF TRYING TO FIND OUT IF PT HAS BACTERIAL MENNIGITIS OR FUNGAL INFECTION. DR. ZAVALA STATED HE WILL FOLLOW UP WITH THE LAB. PT MADE AWARE.
--- NOTE | 2019-02-06 09:25 | NUR ---
NORCO 5 MG PO GIVEN FOR SHARP NECK AND BACK PAIN 11/24. RESP EVEN AND UNLABORED. NO RESP DISTRESS NOTED. DUE MEDS GIVEN AND TOLERATED WELL. PT IS ABLE TO GET UP OOB AND AMBULATE WITH STEADY GAIT, NO DISTRESS NOTED. MOTHER AT BEDSIDE. CALL LIGHT WITHIN REACH. BED IN LOWEST POSTION.
[2019-02-06 09:45] VITALS: BP 112/73
--- NOTE | 2019-02-06 11:13 | NUR ---
ATIVAN 0.5MG IVP GIVEN FOR AGITATION. TORADOL 15 MG IVP GIVEN FOR ACHING H/A 10/25. FLUIDS ENCOURAGED. CALL LIGHT WITHIN REACH.
--- NOTE | 2019-02-06 12:19 | NUR ---
DUE MEDS GIVEN AND TOLERATED WELL. PT DENIES PAIN AT THIS TIME. PT IS OUT OF BED SITTING IN BEDSIDE CHAIR. MOTHER VISITING AT BEDSIDE. CALL LIGHT WITHIN REACH.
--- NOTE | 2019-02-06 13:32 | NUR ---
DUE MEDS GIVEN AND TOLERATED WELL. PT DENIES PAIN AND DISCOMFORT AT THIS TIME. CALL LIGHT WITHIN REACH. DROPLET PRECAUTIONS MAINTAINED.
--- NOTE | 2019-02-06 13:59 | NUR ---
1. Recommend continue Reg diet with Ensure Enlive TID (provides 1050kcal and 60g protein)
--- NOTE | 2019-02-06 13:59 | NUR ---
Follow-up Nutrition Assessment- Yusef Kapadia 219-B Dx: AMS, Sepsis Labs: (02/06) HCt:39L Meds: Ambien, Ampicillin, Ativan, Cozaar, Diflucan, Neurontin, Lactinex, Norvasc, Paxil, Phenergan, Prilosec, Rocephin, Tylenol, Torodol, Vancocin, Zofran Current Diet: Regular with Ensure TID PO intake: (02/05) B:0% L:50% (02/06) B:50% L:60% Weights: (02/04)72.1kg (02/06) 72.5kg Skin: scattered ecchymosis to BUE Edema: none Last BM: 02/05 Per progress note 02/06, Pt with no acute events overnight. Notified by lab that there was not enough remaining sample of CSF for Mary Ink stain. Continues to pend further evaluation with cryptococcal antigen and fungal culture. Continue empiric treatment for now. Rocephin Day #7, Vancomycin Day #7, Ampicilin Day #6, Fluconazole Day#6, acyclovir discontinued. Durring visit, pt was seen laying in bed. Pt reports to having nausea on and off, however, with no other GI complaints. Encourgaed to drink ONS. Will continue to monitor. Estimated Nutritional Needs based on admit [id number] Energy: 1850-2220kcal/day (25-30kcal/kg) Protein: 89-103g/day (1.2-1.4g/kg for preservation of LBM) Fluid: 1850-2220ml/day (1ml/day) or per doctor Nutrition Diagnosis 1. Inadequate oral intake related to poor appetite as evidenced by documented PO 0% (improving). Intervention 1. Recommend continue Reg diet with Ensure Enlive TID (provides 1050kcal and 60g protein) Monitor/Evaluate Previous goal: PO intake at least 75% of estimated needs (not met) Goal: PO intake at least 75% of estimated needs Monitor: PO intake, Labs, GI function F/U in 2-3 days as high risk:02/08-
--- NOTE | 2019-02-06 15:40 | NUR ---
ATIVAN 0.5MG IVP GIVEN FOR AGITATION. PT IS YELLING AT MOTHER AND STATING, "I'M JUST GOING TO LEAVE THIS PLACE." "I'VE DONE IT BEFORE AND I WILL DO IT AGAIN!" I'M GOING TO PULL ALL THIS STUFF OFF OF ME!". IV MEDS STARTED. PT IS UP PACING IN ROOM. CALL LIGHT WITHIN REACH.
[2019-02-06 16:35] VITALS: BP 115/74
--- NOTE | 2019-02-06 17:35 | NUR ---
TORADOL 15 MG IVP GIVEN FOR H/A AND BACK ACHE 10/25. DUE MEDS GIVEN. RESP EVEN AND UNLABORED. NO DISTRESS NOTED. CALL LIGHT WITHIN REACH. DROPLET PRECAUTIONS MAINTAINED.
--- NOTE | 2019-02-06 18:20 | NUR ---
PT IS AAOX4. RESP EVEN AND UNLABORED. PT ANXIOUS THROUGH OUT THE DAY. PT DENIES PAIN AND IS CALM AND COOPERATIVE AT THIS TIME. IVF RUNNING TO [facility]. SITE WNL. CALL LIGHT WITHIN REACH. BED IN LOWEST POSITION. DROPLET PRECAUTIONS MAINTAINED. WILL ENDORSE ALL CARE TO NOC RN.
--- NOTE | 2019-02-06 19:16 | NUR ---
NORCO 5 MG PO GIVEN FOR BACK PAIN AND H/A 10/25. EXTRA FLUIDS GIVEN. PT TURNED AND REPOSITIONED. CALL LIGHT WITHIN REACH. DROPLET PRECAUTIONS MAINTAINED.
--- NOTE | 2019-02-06 19:33 | NUR ---
RECEIVED PT FROM DAY SHIFT RN. PT AAOX4. DENIES MOREJON/DIZZINESS. BREATHING EVEN AND UNLABORED ON RA WITH NO SOB NOTED. MED SURG PT DENIES CHEST PAIN/PRESSURE. ABD SOFT/ROUND ACTIVE BOWEL SOUNDS. DENIES ABD PAIN. BUE ECCHYMOSIS. IV LFA PATENT, INFUSING WELL. CALL BUTTON WITHIN REACH. SAFETY PRECAUTIONS IN PLACE. DROPLET PRECAUTIONS. MOTHER AT BEDSIDE. WILL CONTINUE TO MONITOR.
--- NOTE | 2019-02-06 19:56 | NUR ---
PT REPORTED FEELING ANXIOUS AND NAUSEAUS. MEDICATED PER EMAR. CALL BUTTON WITHIN REACH. SAFETY PRECAUTIONS IN PLACE. WILL MONITOR.
[2019-02-06 21:05] VITALS: BP 154/97
--- NOTE | 2019-02-06 21:50 | NUR ---
PT REQUESTING SLEEPING MEDICATION. MEDICATED PER EMAR. CALL BUTTON WITHIN REACH. SAFETY PRECAUTIONS IN PLACE. WILL CONTINUE TO MONITOR.
--- NOTE | 2019-02-07 01:00 | NUR ---
PT REPORTED FEELING ANXIOUS. MEDICATED PER EMAR. CALL BUTTON WITHIN REACH. SAFETY PRECAUTIONS IN PLACE. WILL MONITOR.
--- NOTE | 2019-02-07 01:45 | NUR ---
PT REPORTED FEELING 8/10 BACK PAIN. MEDICATED PER EMAR. CALL BUTTON WITHIN REACH. SAFETY PRECAUTIONS IN PLACE. WILL MONITOR.
--- NOTE | 2019-02-07 05:05 | NUR ---
PT SLEPT POORLY THROUGHOUT THE NIGHT. BREATHING EVEN AND UNLABORED. NO SOB NOTED. PT DENIES CHEST PAIN/PRESSURE. DENIES MOREJON/DIZINES. IV PATENT, INFUSING WELL. MEDICATED PER EMAR. PT REPORTED CONT. BACK PAIN AND EPISODES OF ANXIETY THROUGHOUT THE NIGHT, MEDICATED PER EMAR WITH SOME RELIEF. NO SIGNS OF ACUTE DISTRESS NOTED. CALL BUTTON WITHIN REACH. SAFETY PRECAUTIONS IN PLACE. WILL CONTINUE TO MONITOR AND ENDORSE CARE TO DAY SHIFT RN.
--- NOTE | 2019-02-07 05:19 | NUR ---
PT REPORTED FEELING ANXIOUS. MEDICATED PER EMAR. CALL BUTTON WITHIN REACH. SAFETY PRECAUTIONS IN PLACE. WILL MONITOR.
[2019-02-07 06:15] VITALS: BP 112/73
[2019-02-07 06:42] LABS: BASOPHIL % 0.4 % (0-2); PLATELET COUNT 325 x10^3mcL (130-400)
[2019-02-07 07:11] LABS: CALCIUM 8.4 mg/dL (8.5-10.1); CARBON DIOXIDE 26.8 mmol/L (21-32); CHLORIDE SERUM 108 mmol/L (98-107); CREATININE SERUM 0.6 mg/dL (0.7-1.3); GFR1 > 60 mL/min; GLUCOSE SERUM 94 mg/dL (74-106); MAGNESIUM 2.4 mg/dL (1.8-2.4); PHOSPHOROUS 3.6 mg/dL (2.5-4.9); POTASSIUM SERUM 3.6 mmol/L (3.5-5.1); SODIUM SERUM 143 mmol/L (136-145)
--- NOTE | 2019-02-07 07:30 | NUR ---
PT AWAKE DENIES PAIN. NO SIGNS OF DISTRESS. CALL BUTTON WITHIN REACH. SAFETY PRECAUTIONS IN PLACE. ENDORSED CARE TO DAY SHIFT RN, ALL QUESTIONS ADDRESSED.
--- NOTE | 2019-02-07 07:47 | NUR ---
HANDOFF REPORT RECEIVED. PATIENT ASLEEP AND NOT IN ANY DISTRESS. MOTHER AT BEDSIDE. NS AT 100CC/HR INFUSING PERIPHERALLY. CALL BELTRAN WITHIN REACH.
[2019-02-07 07:50] LABS: RED CELL DISTRIBUTION WIDTH 15.1 % (11.5-14.5)
[2019-02-07 08:44] VITALS: BP 118/69
--- NOTE | 2019-02-07 09:59 | NUR ---
COMPLAINED OF 8/10 GENERALIZED PAIN. NORCO GIVEN WITH FAIR RESULTS. ATIVAN GIVEN FOR ANXIETY. RESTING AT THIS TIME WITH MOTHER AT BEDSIDE.
--- NOTE | 2019-02-07 10:43 | NUR ---
MD VENEGAS ASSESSING PATIENT ON ROUNDS.
--- NOTE | 2019-02-07 11:56 | NUR ---
TORADOL 15MG IVP GIVEN FOR LEG PAINS. CALL BELTRAN WITHIN REACH.
--- NOTE | 2019-02-07 15:00 | NUR ---
FAMILY VISITING. PATIENT AMBULATING IN THE ROOM. NOT IN ANY DISTRESS. CALL BELTRAN WITHIN REACH.
[2019-02-07 16:10] VITALS: BP 110/71
--- NOTE | 2019-02-07 18:13 | NUR ---
MIDLINE PLACED ON ATIF BY PICC RN . PATIENT WISHES TO GO HOME TONITE THEN CHANGED HIS MIND. "I WILL WAIT TILL TOMORROW". CALL BELTRAN WITHIN REACH.NOT IN ANY DISTRESS.
--- NOTE | 2019-02-07 19:21 | NUR ---
HANDOFF REPORT GIVEN TO PABLO SPRINGER. PATIENT WATCHING TV AND SITTING UP IN A CHAIR. NOT IN ANY DISTRESS. CALL BELTRAN WITHIN REACH.
--- NOTE | 2019-02-07 19:40 | NUR ---
RECEIVED PATIENT IN BED AWAKE, ALERT AND ORIENTED WITH NO SIGN OF ACUTE DISTRESS. MED/SURG PATIENT. RESPIRATION EVEN AND NONLABOR SATTING AT 99% RA. ABDOMEN ROUND AND NONTENDER WITH ACTIVE BS. IV TO LFA INTACT AND INFUSING WELL. WILL CONTINUE TO MONITOR. CALL LIGHT WITHIN REACH.
[2019-02-07 20:51] VITALS: BP 115/75
--- NOTE | 2019-02-07 21:04 | NUR ---
PATIENT AGITATED AND REQUESTED ATIVAN, GIVEN 0.5MG IVP PRESCRIBED. WILL CONTINUE TO MONITOR.
--- NOTE | 2019-02-07 22:27 | NUR ---
VOMITED X1 IN MODERATE AMOUNT, PATIENT REQUESTED MEDICATION. PHENERGAN 12.5 MG IVP GIVEN PRESCRIBED. WILL CONTINUE TO MONITOR.
--- NOTE | 2019-02-07 22:47 | NUR ---
C/O BACKPAIN AT SCALE OF 8/10 PER PATIENT, TORADOL 15MG IVP GIVEN PRESCRIBED. WILL CONTINUE TO MONITOR.
--- NOTE | 2019-02-08 01:51 | NUR ---
STILL AWAKE WATCHING TELEVISION WITH NO INDICATION OF PAIN . WILL CONTINUE TO MONITOR.
--- NOTE | 2019-02-08 05:03 | NUR ---
AWAKE MOST OF THE TIME WATCHING TELEVISION, C/O AGITATION X2 AND MEDICATED PRESCRIBED. CHECKED AT INTERVALS FOR NEEDS AND SAFETY.
[2019-02-08 05:42] VITALS: BP 115/71
[2019-02-08 06:46] LABS: BASOPHIL % 0.6 % (0-2); PLATELET COUNT 343 x10^3mcL (130-400)
[2019-02-08 06:52] LABS: CALCIUM 8.1 mg/dL (8.5-10.1); CARBON DIOXIDE 28.8 mmol/L (21-32); CHLORIDE SERUM 108 mmol/L (98-107); CREATININE SERUM 0.7 mg/dL (0.7-1.3); GFR1 > 60 mL/min; GLUCOSE SERUM 108 mg/dL (74-106); MAGNESIUM 2.3 mg/dL (1.8-2.4); POTASSIUM SERUM 3.6 mmol/L (3.5-5.1); SODIUM SERUM 144 mmol/L (136-145)
[2019-02-08 07:03] LABS: RED CELL DISTRIBUTION WIDTH 15.5 % (11.5-14.5)
--- NOTE | 2019-02-08 08:00 | NUR ---
SHIFT ASSESSMENT DONE. PATIENT A/A/OX4; CLEARE SPEECH. NO RESP DISTRESS ON RA. O2 SAT 99%. REGULAR DIET, TOLERATED WELL. AMBULATED ON STEADY GAIT. IVF OF NS 100CC/HR. IV SITE TO LFA INTACT. MID LINE H/L'D TO ATIF. DRSG INTACT. NO REDNESS/SWELLING. NO S/S OF PAIN NOW. DROPLET ISOLATION. CALL LIGHT IN REACH.
[2019-02-08 09:00] VITALS: BP 111/62
--- NOTE | 2019-02-08 10:30 | NUR ---
KARLA C/O ANXIETY. DR. Dickey PAGED X2. DR. CONSTANTINO MADE MORNING ROUD AND AWARE OF PATIENT'S ANXIETY. WAITING FOR NEW ORDER.
--- NOTE | 2019-02-08 11:17 | NUR ---
NEW ORDER OF ATIVAN 0.5MG PO GIVEN FOR ANXIETY. CONTINUE MONITOR.
--- NOTE | 2019-02-08 12:19 | NUR ---
PATIENT C/O STILL ANXIETY. ATIVAN 0.5MG PO AT 1117 WHICH WAS NOT ENOUGH TO RELEAVE HIS ANXIETY. ORDER OF ADDITIONAL ATIVAN 0.5MG PO GIVEN. CONTINUE MONITOR.
--- NOTE | 2019-02-08 12:36 | NUR ---
SPOKE WITH DR ORTIZ AND NOTIFIED HIM THAT PATIENT WANTS TO GO HOME AND DOES NOT WANT TO WAIT FOR THE PM DOSES OF ANTIBIOTICS. PER DR ORTIZ PATIENT CAN SKIP TONIGHT ANTIBIOTICS AND START HOME HEALTH IV ANTIBIOTICS IN AM. ATTENDING NURSE ZEYAD MADE AWARE. CHIEF CHEMIST PABLO NOTIFIED.
[2019-02-08 12:50] VITALS: BP 111/62
[2019-02-08] MEDS ORDERED: LORAZEPAM0.5 MG PO (14:03)
--- NOTE | 2019-02-08 15:50 | NUR ---
CALM THIS TIME. D/C TO HOME W/ HOME HEALTH CARE PER ORDER. MIDLINE TO RUE FLASHED WITH NS AND CLAMPTED. DRSG INTACT. SITE CLEAN. NO REDNESS/SWELLING. D/C INSTRUCTION GIVEN. PATIENT AMBULATORY. CONDITION STABLE.
== END 2019-02-08 15:52 | disposition home health service (06) | DRG 871 ==
LOC: ED 12:17 → IC 14:28 → MU 14:28 → IC 17:37 → MU 02-02 14:05
PROVIDERS: Student in an Organized Health Care Education/Training Program; ADMIT Internal Medicine
PROC: 009U3ZX Drainage of Spinal Canal, Percutaneous Approach, Diagnostic (ICD-10-PCS; principal; 2019-02-02)
PROC: B01B1ZZ Fluoroscopy of Spinal Cord using Low Osmolar Contrast (ICD-10-PCS; 2019-02-02)
PROC: 05HY33Z Insertion of Infusion Device into Upper Vein, Percutaneous Approach (ICD-10-PCS; 2019-02-07)
DX: A41.9 Sepsis, unspecified organism (principal); G00.9 Bacterial meningitis, unspecified; G93.41 Metabolic encephalopathy; N39.0 Urinary tract infection, site not specified; M62.82 Rhabdomyolysis; G62.9 Polyneuropathy, unspecified; E83.42 Hypomagnesemia; E83.39 Other disorders of phosphorus metabolism; I10 Essential (primary) hypertension; F32.9 Major depressive disorder, single episode, unspecified; K21.9 Gastro-esophageal reflux disease without esophagitis; F17.210 Nicotine dependence, cigarettes, uncomplicated; F15.10 Other stimulant abuse, uncomplicated; Z68.21 Body mass index [BMI] 21.0-21.9, adult
CPT/HCPCS: 62272; 82947; 83880; 87210; 97116-GP; A4628; C1751; G0378; G0480; J0133; J0290; J0696; J1450; J1630; J1885; J2060; J2250; J2405; J2550; J2704; J3370; J3475; J3480; J3490; J7030; J7060; Q0092; Q0163

== ENCOUNTER 2020-03-08 00:12 | Emergency (ER) | payer OTHER, MEDICAID ==
[~2020-03-08] VITALS: Ht 172.7 cm; Wt 81.6 kg
[~2020-03-08 00:12] MED LIST: AMLODIPINE BESYL5 M2 PO; GABAPENTIN600 M1 PO; KROGER NIC21 MG/24 H TOP; LORAZEPAM0.5 MG PO; LOSARTAN POTASS50 M1 PO; PANTOPRAZOLE SO40 M1 PO; PAROXETINE40 M1 PO; STRIBILD1 TAB PO
[2020-03-08 00:23] VITALS: Ht 172.7 cm; Wt 81.6 kg
[2020-03-08 01:26] VITALS: BP 138/78
== END 2020-03-08 01:26 | disposition home or self-care (01) ==
LOC: ED 00:12
DX: G60.9 Hereditary and idiopathic neuropathy, unspecified (principal); F17.210 Nicotine dependence, cigarettes, uncomplicated; I10 Essential (primary) hypertension; Z76.0 Encounter for issue of repeat prescription
CPT/HCPCS: 99406